=== PATIENT | male | born 1975 | race Two or more races ===

== ENCOUNTER 2018-01-31 07:20 | Emergency (ER) | payer MEDICAID ==
[2018-01-31] MEDS ORDERED: ASPirin 81 mg TAB PO ONE (07:45)
[2018-01-31] MEDS ORDERED: LIDOCAINE VISCOUS 2% 15ML UD PO ONE (08:45)
[2018-01-31] MEDS ORDERED: ALUM & MAG HYDROX-SIMETH LIQ(MAALOX) 30 ML PO ONE (08:45)
[2018-01-31] MEDS ORDERED: DONNATAL 5ml ORAL Elix (BELLADONNA ALK-PHENOBARB) PO ONE (08:45)
[2018-01-31 09:40] LABS: Alanine Aminotransferase 41 U/L (16-61); Albumin 4.2 g/dL (3.4-5.0); Anion Gap 5 (5-15); Blood Urea Nitrogen 13 mg/dL (7-18); Calcium 8.7 mg/dL (8.5-10.1); Carbon Dioxide 28 mmol/L (21-32); Chloride 107 mmol/L (98-107); Glucose 89 mg/dL (74-106); Sodium 140 mmol/L (136-145)
[2018-01-31 09:42] LABS: Basophils # (auto) 0 uL; Basophils % (auto) 0.6 % (0.0-2.0); Eosinophils # (auto) 0.1 uL; Eosinophils % (auto) 1.7 % (0.0-7.0); Lymphocytes # (auto) 1.7 uL; Lymphocytes % (auto) 22.6 % (10.0-50.0); Mean Corpuscular Hemoglobin 30.4 pg (28.0-32.0); Mean Corpuscular Hgb Conc. 33.9 g/dL (32.0-36.0); Mean Corpuscular Volume 89.7 fL (80.0-100.0); Monocytes # (auto) 0.3 uL; Neutrophils # (auto) 5.2 uL; Neutrophils % (auto) 71.1 % (37.0-80.0); Nucleated Red Blood Cells % 0.1 %; Platelet Count (auto) 254 10^3/uL (140-450); Red Blood Cells 5.24 10^6/uL (4.5-5.90); Red Cell Distribution Width 13.1 % (11.8-14.3); White Blood Cell 7.3 10^3/uL (4.4-10.8)
[2018-01-31 09:45] LABS: Alkaline Phosphatase 134 U/L (45-117); Aspartate Aminotransferase 21 U/L (15-37); Bilirubin, Total 0.5 mg/dL (0.2-1.0); GFR African American 132 mL/min; GFR Non-African American 109 mL/min; Total Protein 7.6 g/dL (6.4-8.2)
[2018-01-31 11:00] VITALS: BP 128/82
== END 2018-01-31 11:06 | disposition home or self-care (01) ==
LOC: ER 07:20 → EDBD 07:20 → ER 11:06
DX: K21.9 Gastro-esophageal reflux disease without esophagitis (principal)
CPT/HCPCS: 36415; 71046; 80053; 84484; 85025